=== PATIENT | female | born 1965 | race Caucasian/White ===

== ENCOUNTER 2018-11-02 20:24 | Emergency (ER) | payer OTHER ==
[~2018-11-02] VITALS: Ht 165.1 cm; Wt 72.6 kg
[~2018-11-02 20:24] MED LIST: IBUP-2413 PO
[2018-11-02] MEDS ORDERED: TDAP DIPH,PERTUSS,TET VAC/PF 0.5 ML DISP.SYRIN IM ONE ×2 (20:54→21:00)
--- NOTE | 2018-11-02 21:00 | NUR ---
Patient discharged to home in stable conditon. Written and verbal after care instructions given. Patient verbalizes understanding of instructions.AMBULATED WITH STEADY GAIT ,ALL BELONGINGS TAKEN .
[2018-11-02 21:02] VITALS: BP 128/80
== END 2018-11-02 21:03 | disposition home or self-care (01) ==
LOC: ER 20:24
DX: S50.812A Abrasion of left forearm, initial encounter (principal); Z79.1 Long term (current) use of non-steroidal anti-inflammatories (NSAID); W22.8XXA Striking against or struck by other objects, initial encounter; Y93.89 Activity, other specified; Y92.89 Other specified places as the place of occurrence of the external cause; Y99.8 Other external cause status
CPT/HCPCS: 90715; A4663